=== PATIENT | male | born 1945 | race Caucasian/White ===

== ENCOUNTER → 2024-05-12 08:12 | Outpatient (REF) | payer MEDICARE, OTHER, SELFPAY | LOC: RCS 08:12 | PROVIDERS: ATTENDING PHYSICIAN Internal Medicine; REFERRING PHYSICIAN Internal Medicine Cardiovascular Disease | DX: R06.6 Hiccough (principal); R00.1 Bradycardia, unspecified; E23.0 Hypopituitarism; I10 Essential (primary) hypertension; K21.9 Gastro-esophageal reflux disease without esophagitis | CPT/HCPCS: 93306 ==

== ENCOUNTER → 2024-05-18 09:28 | Outpatient (REF) | payer MEDICARE, OTHER, SELFPAY | LOC: RCS 09:28 | PROVIDERS: ATTENDING PHYSICIAN Internal Medicine; REFERRING PHYSICIAN Internal Medicine Cardiovascular Disease | DX: R06.6 Hiccough (principal); R00.1 Bradycardia, unspecified; E23.0 Hypopituitarism; I10 Essential (primary) hypertension; K21.9 Gastro-esophageal reflux disease without esophagitis | CPT/HCPCS: 93225; 93226 ==

== ENCOUNTER → 2024-05-20 10:02 | Outpatient (REF) | payer MEDICARE, OTHER, SELFPAY ==
[2024-05-20 11:12] LABS: Hematocrit 45.6 % (39.0-52.0)
[2024-05-20 11:41] LABS: ALT (SGPT) 17 U/L (0-50); AST (SGOT) 26 U/L (17-59); Albumin 4.2 g/dl (3.5-5.0); Alkaline Phosphatase 71 U/L (38-126); Blood Urea Nitrogen 14 mg/dl (9-20); Calcium 9.2 mg/dl (8.4-10.2); Carbon Dioxide 23 mmol/L (22-30); Chloride 109 mmol/L (98-107); Glucose 87 mg/dl (70-99); Potassium 4.1 mmol/L (3.5-5.1); Sodium 140 mmol/L (135-145); Total Bilirubin 0.8 mg/dl (0.2-1.3); Total Protein 6.6 g/dl (6.3-8.2); eGFR > 60.00
[2024-05-20 11:57] LABS: Free T4 1.73 ng/dl (0.78-2.19)
[2024-05-20 12:11] LABS: PSA, Total - Diagnostic < 0.06 ng/ml (0.0-4.0)
== END ==
LOC: REG 10:02
PROVIDERS: ATTENDING PHYSICIAN Internal Medicine Endocrinology, Diabetes & Metabolism; FAMILY PHYSICIAN Internal Medicine
DX: N40.0 Benign prostatic hyperplasia without lower urinary tract symptoms (principal); E23.0 Hypopituitarism; D64.9 Anemia, unspecified
CPT/HCPCS: 36415; 80053; 84153; 84403; 84439; 85014

== ENCOUNTER → 2024-05-31 07:47 | Outpatient (REF) | payer MEDICARE, OTHER, SELFPAY | LOC: RAD 07:47 | PROVIDERS: ATTENDING PHYSICIAN Internal Medicine Cardiovascular Disease; FAMILY PHYSICIAN Internal Medicine | DX: R06.6 Hiccough (principal); R00.1 Bradycardia, unspecified; E23.0 Hypopituitarism; I10 Essential (primary) hypertension; K21.9 Gastro-esophageal reflux disease without esophagitis | CPT/HCPCS: 76700 ==

== ENCOUNTER → 2024-07-03 11:44 | Outpatient (REF) | payer MEDICARE, OTHER, SELFPAY | LOC: DHCBC/DCA 11:44 | PROVIDERS: ATTENDING PHYSICIAN Internal Medicine Cardiovascular Disease; FAMILY PHYSICIAN Internal Medicine | DX: R06.09 Other forms of dyspnea (principal) | CPT/HCPCS: 78452; 93017; A9500 ==

== ENCOUNTER → 2024-07-10 07:59 | Outpatient (REF) | payer MEDICARE, OTHER, SELFPAY | LOC: MRI 07:59 | PROVIDERS: ATTENDING PHYSICIAN Neurological Surgery; FAMILY PHYSICIAN Internal Medicine | DX: D35.2 Benign neoplasm of pituitary gland (principal) | CPT/HCPCS: 70553; A9575 ==

== ENCOUNTER → 2024-08-21 12:09 | Outpatient (REF) | payer MEDICARE, OTHER, SELFPAY ==
[2024-08-21 13:36] LABS: % Basophils 0.5 % (0-2); % Eosinophils 3.6 % (0-6); % Immature Granulocytes 0.2 % (0-0.5); % Lymphocytes 13.4 % (20.5-51.1); % Monocytes 6.2 % (1.7-9.3); % Neutrophils 76.1 % (42.2-75.2); Absolute Eosinophils 0.3 10^3/uL (0-0.7); Absolute Lymphocytes 1.1 10^3/uL (1.2-3.4); Absolute Monocytes 0.5 10^3/uL (0.1-0.6); Absolute Neutrophils 6.5 10^3/uL (1.4-6.5); Hematocrit 42.4 % (39.0-52.0); Hemoglobin 14.9 g/dL (13.0-18.0); Mean Corp Hgb Conc. 35.1 g/dL (33.0-37.0); Mean Corpuscular Hgb 29.6 pg (27.0-31.0); Mean Corpuscular Volume 84.1 fL (80.0-94.0); Mean Platelet Volume 8.7 fL (7.4-10.4); Nucleated Red Blood Cells % 0 % (-); Platelet Count 261 10^3/uL (130-400); Red Blood Cell Count 5.04 10^6/uL (4.70-6.10); Red Cell Dist. Width 13.6 % (11.5-14.5); White Blood Cell Count 8.5 10^3/uL (4.8-10.8)
== END ==
LOC: REG 12:09
PROVIDERS: ATTENDING PHYSICIAN Dermatology; FAMILY PHYSICIAN Internal Medicine
DX: L30.8 Other specified dermatitis (principal); Z79.899 Other long term (current) drug therapy
CPT/HCPCS: 36415; 85025

== ENCOUNTER → 2024-09-30 11:07 | Outpatient (REF) | payer MEDICARE, OTHER, SELFPAY ==
[2024-09-30 12:45] LABS: Urine Albumin Negative (Neg - Trace); Urine Bilirubin Negative (Negative); Urine Character Clear (Clear); Urine Color Yellow; Urine Glucose Negative (Negative); Urine Ketone Negative (Negative); Urine Leukocyte Negative (Negative); Urine Nitrite Negative (Negative); Urine Occult Blood Trace (Negative); Urine Urobilinogen Negative (Neg - 1+)
[2024-09-30 13:02] LABS: Urine White Cell None Seen /HPF (0-5)
[2024-09-30 13:03] LABS: ALT (SGPT) 21 U/L (0-50); AST (SGOT) 26 U/L (17-59); Albumin 4.2 g/dl (3.5-5.0); Alkaline Phosphatase 67 U/L (38-126); Blood Urea Nitrogen 18 mg/dl (9-20); Calcium 9.4 mg/dl (8.4-10.2); Carbon Dioxide 29 mmol/L (22-30); Chloride 106 mmol/L (98-107); Glucose 79 mg/dl (70-99); HDL Cholesterol 35 mg/dl; LDL Cholesterol, Calculated 83 mg/dl; Sodium 145 mmol/L (135-145); Total Bilirubin 0.9 mg/dl (0.2-1.3); Total Cholesterol 151 mg/dl (50-199); Total Protein 6.9 g/dl (6.3-8.2); Triglyceride 168 mg/dl (10-149); Very Low Density Lipoprotein 33 mg/dl (0-30); eGFR > 60.00
== END ==
LOC: REG 11:07
PROVIDERS: ATTENDING PHYSICIAN Internal Medicine
DX: I10 Essential (primary) hypertension (principal); E78.5 Hyperlipidemia, unspecified; E23.0 Hypopituitarism
CPT/HCPCS: 36415; 80053; 80061; 81003; 81015

== ENCOUNTER → 2024-11-23 10:19 | Outpatient (REF) | payer MEDICARE, OTHER, SELFPAY ==
[2024-11-23 10:59] LABS: Hematocrit 45.7 % (39.0-52.0)
[2024-11-23 12:19] LABS: ALT (SGPT) 19 U/L (0-50); AST (SGOT) 25 U/L (17-59); Albumin 4.3 g/dl (3.5-5.0); Alkaline Phosphatase 75 U/L (38-126); Blood Urea Nitrogen 18 mg/dl (9-20); Calcium 9.3 mg/dl (8.4-10.2); Carbon Dioxide 29 mmol/L (22-30); Chloride 105 mmol/L (98-107); Glucose 74 mg/dl (70-99); Potassium 4.2 mmol/L (3.5-5.1); Sodium 140 mmol/L (135-145); Total Bilirubin 0.9 mg/dl (0.2-1.3); Total Protein 6.7 g/dl (6.3-8.2); eGFR > 60.00
[2024-11-23 12:31] LABS: Free T4 1.62 ng/dl (0.78-2.19)
[2024-11-23 12:44] LABS: PSA, Total - Diagnostic < 0.06 ng/ml (0.0-4.0)
== END ==
LOC: REG 10:19
PROVIDERS: ATTENDING PHYSICIAN Internal Medicine Endocrinology, Diabetes & Metabolism; FAMILY PHYSICIAN Internal Medicine
DX: Z85.46 Personal history of malignant neoplasm of prostate (principal); E89.3 Postprocedural hypopituitarism
CPT/HCPCS: 36415; 80053; 84153; 84403; 84439; 85014

== ENCOUNTER → 2024-12-11 10:23 | Outpatient (REF) | payer MEDICARE, OTHER, SELFPAY | LOC: RAD 10:23 | PROVIDERS: ATTENDING PHYSICIAN Internal Medicine Gastroenterology; FAMILY PHYSICIAN Internal Medicine | DX: R06.6 Hiccough (principal) | CPT/HCPCS: 74246 ==

== ENCOUNTER → 2025-01-30 09:42 | Outpatient (REF) | payer MEDICARE, OTHER, SELFPAY | LOC: PAVMRI 09:42 | PROVIDERS: ATTENDING PHYSICIAN Neurological Surgery; FAMILY PHYSICIAN Internal Medicine | DX: D35.2 Benign neoplasm of pituitary gland (principal) | CPT/HCPCS: 70553; A9575 ==

== ENCOUNTER → 2025-07-12 13:59 | Outpatient (REF) | payer MEDICARE, OTHER, SELFPAY | LOC: REG 13:59 | PROVIDERS: ATTENDING PHYSICIAN Internal Medicine Endocrinology, Diabetes & Metabolism; FAMILY PHYSICIAN Internal Medicine | DX: E23.0 Hypopituitarism (principal); Z85.46 Personal history of malignant neoplasm of prostate | CPT/HCPCS: 36415; 84153; 84154; 84403 ==

== ENCOUNTER 2025-07-25 13:33 | Emergency (ER) | payer MEDICARE, OTHER, SELFPAY ==
[2025-07-25 13:34] VITALS: BP 131/92
--- NOTE | 2025-07-25 14:37 | ED.GENMED ---
History of Present Illness
General
Chief Complaint: Musculo-Skeletal Complaint
Source: patient
Exam Limitations: none
Time Seen by Provider: 07/25/25 14:06
Nursing documentation reviewed up to this point in time: agreed with
History of Present Illness
History of Present Illness:
Patient is an 6-year-old male who presents to the ER for evaluation of left calf pain. Patient reports 2 months ago he was treated for partial tear of his Achilles tendon and was followed by Dr. Santiago at [facility]. He was scheduled to go to
physical therapy but did not go to physical therapy as recommended.
On Wednesday 2 days ago he was walking the dog fell describes tripping and felt sudden intense left posterior calf pain. He has had pain since. Pain with walking. He denies any send he is on Eliquis. No headache no neck pain .
Past History
Past History
ED Past Medical History: HTN, Hypercholesterolemia and Other (Prostate cancer, hypopituitaryism)
ED Past Surgical History: Orthopedic and Other (Hernia repair, pituitary tumor resection x2)
Social History
Tobacco: Non-smoker
Alcohol: Daily (a glass of wine)
Personal:
Living: with family
Employment: Employed
Phy Exam
General Physical Exam
General Presentation: no apparent distress
General age: appears stated age
General Skin: warm and dry
General Habitus: normal
General Mental: alert
General Hydration: appears well hydrated
Neurological Exam
Neurological Exam: alert and oriented x3
Musculoskeletal Exam
Musculoskeletal Exam: other (Left lower extremity with fullness and swelling to posterior calf region tender to the distal posterior leg above the ankle decreased Achilles tendon function on exam; strong pulses)
Skin Exam
Skin Exam: normal color and warm/dry
Psychiatric Exam
Psychiatric Exam: normal mood/affect
Course
Orders/Labs/Results
Orders:
Orders
07/25/25 14:36
Ankle, left 3 view CR [CR Ankle - Left Min 3 Views ] Urgent
Comment:
Reason For Exam: trauma
Tib/Fib, Left 2 View [CR Leg Tibia/fibula Left 2 Vw] Urgent
Comment:
Reason For Exam: trauma
Venous Doppler Lwr Ext Left [US Periph Venous LOWER Ext LT] Urgent
Comment:
Reason For Exam: sudden calf pain after fall
Vital Signs
Initial and Last Documented VS:
Initial Vital Signs
Temp Pulse Resp BP Pulse Ox
98.2 F 74 18 131/92 96
07/25/25 13:34 07/25/25 13:34 07/25/25 13:34 07/25/25 13:34 07/25/25 13:34
Last Documented Vital Signs
Temp Pulse Resp BP Pulse Ox
98.2 F 74 18 131/92 96
07/25/25 13:34 07/25/25 13:34 07/25/25 13:34 07/25/25 13:34 07/25/25 14:40
MDM/Problems Addressed
MDM/Problems Addressed:
Patient with recent partial Achilles tendon injury was treated at [facility] and wore a boot as his treatment. He was recommended to go to physical therapy but did not. He comes in today complaining of pain and swelling to left calf. as
documented he tripped and felt sudden pain in his left calf. He presents with swelling of the calf. He is on Eliquis. He denies hitting his head. No headache nausea vomiting neck pain. Patient has point tenderness to the posterior calf and calf
is swollen ultrasound negative for DVT ultrasound does show heterogeneous mass compatible with hematoma and diffuse fusiform thickening of the Achilles tendon compatible with diffuse tenderness. His Achilles tendon is not fully intact however I am
not sure if this is from previous injury since he did not properly do physical therapy.
Will obtain x-rays of x-rays negative plan to discharge home with the boot. Patient has a boot in place. I did speak with orthopedic [facility] on-call Dr. Greene who does agree with the boot. He has an appoint with his orthopedic doctor
Jack at [facility] tomorrow.
Discussed to keep elevate and ice is much as possible and wear boot as needed for ambulation.
Possible Achilles tendon injury versus muscle sprain/injury.
Chronic conditions affecting care:
On Eliquis now with possible hematoma in the calf from injury
*Radiology
Radiology exam reviewed: preliminary read by ED provider
*Pulse Oximetry
SaO2: 96
Oxygen Mode of Delivery: Room air
Patient hypoxic: no
*Critical Care Note
Total Time (30-74mins, 75-104mins- exclusive of procedures): Not Applicable
Patient Management
Discussion with other providers: Clinical Informatics Spec
Escalation/DeEscalation of care consider admission/obs:
ortho dR Greene
ED Attending Note
-
Portions of this chart may have been created with voice recognition software.� Occasional wrong word or��sound alike� substitutions may have occurred due to the inherent limitations of voice recognition software.
Discharge Plan
Departure
Patient Disposition: Home (Routine Discharge)
Date of Disposition: 07/25/25
Time of Disposition: 18:29
Patient with high blood pressure during this ER visit?: Yes
Condition: Fair
Covid-19: Not Applicable
Discharge Problem:
Calf pain
Instructions: BLOOD PRESSURE
Prescriptions:
No Action
simvastatin 40 MG tablet
40 mg PO HS
levothyroxine 125 MCG tablet
125 mcg PO .MOTETHFRSU
aspirin 81 MG tablet,chewable
81 mg PO DAILY
hydrocortisone 10 MG tablet
10 mg PO QPM
hydrocortisone 20 MG tablet
20 mg PO DAILY
Androgel Pump 1.62 %
3 sprays topical DAILY
levothyroxine 125 MCG tablet
250 mcg PO .WESA
benazepril [Lotensin] 20 MG tablet
20 mg PO HS
zyapiekj-jqn-RH-lycopen-lutein [Centrum Silver] 1 EACH tablet
1 ea PO DAILY
Referrals:
Anselmo Tucker MD [Family Provider, Internal Medicine]
Wei Santiago DPM [Non-Admitting Privileges, Podiatry]
Activity Restrictions/Additional Instructions:
As discussed keep elevated as much as possible and ice the affected area for the next 24 hours 20 minutes at a time several times a day. Wear your boot at home for any ambulation. Follow-up with orthopedics tomorrow as scheduled. It is possible
that this is a new Achilles tendon injury versus muscle injury which caused a hematoma since you are on Eliquis. Tylenol as needed for pain
Interventions
Interventions:
*Risk Screen - Suicide Last Done: 07/25/25 13:34
*General Assessment Last Done: 07/25/25 13:38
*Neglect/Abuse Screening Last Done: 07/25/25 13:34
*ED- Fall Risk Assessment Last Done: 07/25/25 13:38
*ED COVID-19 Vaccine History Last Done: 07/25/25 13:38
*ED Influenza Vaccine History Last Done: 07/25/25 13:38
ED-Musculoskeletal Assessment Last Done: 07/25/25 15:15
Discharge Date and Time
Print Language: SOMALI
[2025-07-25 16:00] VITALS: BP 141/88
== END 2025-07-25 18:36 | disposition home or self-care (01) ==
LOC: EMR 13:33
PROVIDERS: EMERGENCY PHYSICIAN Emergency Medicine; FAMILY PHYSICIAN Internal Medicine
DX: M79.662 Pain in left lower leg (principal); R22.42 Localized swelling, mass and lump, left lower limb; I10 Essential (primary) hypertension; E78.00 Pure hypercholesterolemia, unspecified; Z79.01 Long term (current) use of anticoagulants
CPT/HCPCS: 99284; 73590; 73610; 93971

== ENCOUNTER → 2025-07-30 15:34 | Outpatient (REF) | payer MEDICARE, OTHER, SELFPAY | LOC: RAD 15:34 | PROVIDERS: ATTENDING PHYSICIAN Physician Assistant Medical | DX: M79.89 Other specified soft tissue disorders (principal); R22.42 Localized swelling, mass and lump, left lower limb | CPT/HCPCS: 93971 ==

== ENCOUNTER → 2025-07-31 20:27 | Outpatient (REF) | payer MEDICARE, OTHER, SELFPAY | LOC: PAVMRI 20:27 | PROVIDERS: ATTENDING PHYSICIAN Podiatrist Foot & Ankle Surgery; FAMILY PHYSICIAN Internal Medicine | DX: M76.62 Achilles tendinitis, left leg (principal); S86.812A Strain of other muscle(s) and tendon(s) at lower leg level, left leg, initial encounter | CPT/HCPCS: 73718 ==

== ENCOUNTER 2025-10-06 10:04 | Emergency (ER) | payer MEDICARE, OTHER, SELFPAY ==
[2025-10-06] VITALS (8 sets, daily range): BP systolic 96–120; BP diastolic 64–85; BMI 32.6
--- NOTE | 2025-10-06 11:03 | EDRN ---
Dr. Evans in room w/ pt.
--- NOTE | 2025-10-06 11:14 | ED.GENMED ---
History of Present Illness
General
Chief Complaint: Heart Rate Problem
Time Seen by Provider: 10/06/25 10:50
History of Present Illness
History of Present Illness:
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 Patient states that this morning he woke up and
he felt like his heart rate was all over the place. He did not feeling palpitations lightheadedness or dizziness. He did feel some tightness in his neck and some shortness of breath. That has since resolved. He does note that last night he had
diarrhea. He did drink water this morning. No true chest pain. No leg swelling hemoptysis long car rides or plane rides or history of blood clots. He has been compliant all his medications. He does state that if last year there was a possible
heart rate problem that he was seen by cardiology. They did put him on Eliquis preemptively. He is not on any heart rate controlling medications. No recent illnesses. He does drink 1 beer a day.
Past History
Past History
ED Past Medical History: HTN, Hypercholesterolemia and Other (Prostate cancer, hypopituitaryism)
ED Past Surgical History: Orthopedic and Other (Hernia repair, pituitary tumor resection x2)
Social History
Tobacco: Non-smoker
Alcohol: Daily (a glass of wine)
Personal:
Living: with family
Employment: Employed
Phy Exam
Physical Exam
Physical Exam:
GENERAL: in no acute distress
HEENT: normocephalic, extraocular movements intact, dry oral mucosa
NECK: normal inspection
RESPIRATORY: no respiratory distress, clear to auscultation bilaterally
CARDIOVASCULAR: Irregularly irregular, heart rate in the 60s
ABDOMEN/: soft, non-distended, non-tender to palpation, no rebound or guarding
EXTREMITIES: non-tender, no edema/swelling
NEUROLOGIC: awake and alert, moves all extremities
SKIN: warm
Course
Orders/Labs/Results
Orders:
Orders
10/06/25 10:14
EKG [Electrocardiogram (*1)] Urgent
Reason for Study: Palpitations
EKG- Treatment ONCE
10/06/25 10:47
Cardiac Monitoring- Treatment ONCE
IV Insert/Care/Rem.- Treatment PRN
10/06/25 10:51
CR Chest - 2 Views Urgent
Comment:
Reason For Exam: chest pain
10/06/25 11:10
EKG- Treatment ONCE
10/06/25 11:23
Complete Blood Count/With Diff Urgent
Comprehensive Metabolic Panel Urgent
Free T4 Urgent
Magnesium Urgent
Thyroid profile [TSH Reflex To Free T4] Urgent
Troponin I Urgent
10/06/25 13:57
Troponin I Urgent
10/06/25 14:00
Electrocardiogram (*1) Urgent
Reason for Study: Chest Pain
Abnormal Lab Results
10/06/25
11:23
Absolute Neuts (auto) 8.7 H 10^3/uL
(1.4-6.5)
Absolute Lymphs (auto) 0.8 L 10^3/uL
(1.2-3.4)
Absolute Monos (auto) 0.9 H 10^3/uL
(0.1-0.6)
Neutrophils % 82.7 H %
(42.2-75.2)
Lymphocytes % 7.1 L %
(20.5-51.1)
TSH (Reflex) < 0.02 L uIU/ml
(0.47-4.68)
10/06/25 11:23
10/06/25 11:23
Vital Signs
Initial and Last Documented VS:
Initial Vital Signs
Temp Pulse Resp BP Pulse Ox
98.6 F 74 16 115/68 97
10/06/25 10:11 10/06/25 10:11 10/06/25 10:11 10/06/25 10:11 10/06/25 10:11
Last Documented Vital Signs
Temp Pulse Resp BP Pulse Ox
98.6 F 100 22 120/84 96
10/06/25 10:11 10/06/25 15:15 10/06/25 15:15 10/06/25 15:13 10/06/25 15:15
MDM/Problems Addressed
Differential Diagnosis Includes:
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 On arrival patient heart rate in the
70s. Exam does show dry oral mucosa. EKG per my interpretation consistent with atrial fibrillation. This is a new diagnosis for patient. However he is on Eliquis preemptively as there was concern that he could be an atrial arrhythmia last year.
He does appear dehydrated which certainly could have been the trigger. Unclear when patient went into atrial fibrillation. He is rate controlled. Could be also related to metabolic derangement. Given the tightness and the shortness of breath
will rule out atypical ACS. Will check blood work including magnesium troponin and thyroid function. Will obtain chest x-ray. I did discuss cardioversion though patient is asymptomatic at this time so we will hold off.
*Pulse Oximetry
SaO2: 97
Oxygen Mode of Delivery: Room air
Patient hypoxic: no
*Critical Care Note
Total Time (30-74mins, 75-104mins- exclusive of procedures): Not Applicable
Update Note
Update Note:
Blood work reassuring. EKG per my interpretation consistent with atrial fibrillation. Chest x-ray negative for any acute abnormalities. On reevaluation patient remains in rate controlled A-fib though asymptomatic. Delta troponin negative.
Patients concerned about discharge given the snow and if things were to worsen how she would bring him back. She does state that he is spacey. Patient denies any complaints and states that he feels normal. He was ambulatory without any
problems. After lengthy discussion I did offer diltiazem and admission versus cardioversion and admission. However patient's is hesitant on cardioversion as well as diltiazem. After shared decision making we will reach out to cardiology for
their input and if they are in agreement with discharge and rate controlled A-fib.
I did reach out to Dr. ball from cardiology who is in agreement with discharge if he is in rate controlled A-fib. I did review telemetry. Patient has remained in rate controlled A-fib. He remains asymptomatic. Strict return precautions given
ED Attending Note
-
Portions of this chart may have been created with voice recognition software.� Occasional wrong word or��sound alike� substitutions may have occurred due to the inherent limitations of voice recognition software.
Discharge Plan
Departure
Patient Disposition: Home (Routine Discharge)
Date of Disposition: 10/06/25
Time of Disposition: 15:59
Patient with high blood pressure during this ER visit?: No
Discharge Problem:
Atrial fibrillation
Instructions: Atrial Fibrillation (DC)
Prescriptions:
No Action
simvastatin 40 MG tablet
40 mg PO HS
levothyroxine 125 MCG tablet
125 mcg PO .MOTETHFRSU
aspirin 81 MG tablet,chewable
81 mg PO DAILY
hydrocortisone 10 MG tablet
10 mg PO QPM
hydrocortisone 20 MG tablet
20 mg PO DAILY
Androgel Pump 1.62 %
3 sprays topical DAILY
levothyroxine 125 MCG tablet
250 mcg PO .WESA
benazepril [Lotensin] 20 MG tablet
20 mg PO HS
pbxyumnv-fdc-DN-lycopen-lutein [Centrum Silver] 1 EACH tablet
1 ea PO DAILY
Referrals:
Anselmo Tucker MD [Family Provider, Internal Medicine]
Activity Restrictions/Additional Instructions:
Thank You for choosing [facility].
It was a pleasure meeting you and taking part in your care.
You were seen in the Emergency Department today for atrial fibrillation. While you were here we performed blood work, which was reassuring. Please continue to take the Eliquis. Please follow-up with cardiology.
We would like for you to follow up with your primary care physician for further evaluation. If you experience fever, worsening of your symptoms, or develop any other new or concerning symptoms, please return to the Emergency Department immediately.
Please see the attached sheet for additional information.
Interventions
Interventions:
*Risk Screen - Suicide Last Done: 10/06/25 10:11
*General Assessment Last Done: 10/06/25 11:14
*Neglect/Abuse Screening Last Done: 10/06/25 10:11
*ED COVID-19 Vaccine History Last Done: 10/06/25 11:14
*ED Influenza Vaccine History Last Done: 10/06/25 11:14
[facility] Fall Risk Assessment Tool Last Done: 10/06/25 11:14
ED- Cardiac Assessment Last Done: 10/06/25 11:30
ED- Pulmonary Assessment Last Done: 10/06/25 11:30
Discharge Date and Time
Print Language: SLOVAK
[2025-10-06 11:30] LABS: Hematocrit 41.1 % (39.0-52.0); Hemoglobin 14.2 g/dL (13.0-18.0); Mean Corp Hgb Conc. 34.5 g/dL (33.0-37.0); Mean Corpuscular Volume 85.8 fL (80.0-94.0); Nucleated Red Blood Cells % 0 % (-); Platelet Count 240 10^3/uL (130-400); Red Cell Dist. Width 13.1 % (11.5-14.5)
--- NOTE | 2025-10-06 11:40 | EDRN ---
Pt administered water after checking w/ Dr. Evans who said pt can drink water.
--- NOTE | 2025-10-06 11:41 | EDRN ---
OOB to BR at this time.
[2025-10-06 11:46] LABS: ALT (SGPT) 17 U/L (0-50); AST (SGOT) 24 U/L (17-59); Albumin 3.9 g/dl (3.5-5.0); Alkaline Phosphatase 69 U/L (38-126); Blood Urea Nitrogen 14 mg/dl (9-20); Calcium 9.1 mg/dl (8.4-10.2); Carbon Dioxide 25 mmol/L (22-30); Chloride 107 mmol/L (98-107); Estimated Creatinine Clearance 62 ml/min; Glucose 84 mg/dl (70-99); Magnesium 2.3 mg/dl (1.6-2.3); Potassium 4.2 mmol/L (3.5-5.1); Sodium 139 mmol/L (135-145); Total Protein 6.6 g/dl (6.3-8.2); eGFR > 60.00
[2025-10-06 11:56] LABS: Troponin I < 0.012 ng/ml
--- NOTE | 2025-10-06 14:00 | EDRN ---
Repeat tropinin drawn and sent at this time.
[2025-10-06 14:27] LABS: Troponin I < 0.012 ng/ml
--- NOTE | 2025-10-06 14:45 | EDRN ---
Dr. Evans in room w/pt at this time.
--- NOTE | 2025-10-06 15:05 | EDRN ---
Pt ambulated in HW w/ this RN remaining asymptomatic. Spouse is very concerned about pt being discharged w/ A Fib.
--- NOTE | 2025-10-06 15:17 | EDRN ---
Spouse voiced concern about pt going home in A Fib. Dr. Olguin in room now speaking w/ pt and spouse for a decision admission versus discharge as pt is in a stable A Fib at this time.
== END 2025-10-06 16:55 | disposition home or self-care (01) ==
LOC: EMR 10:04
PROVIDERS: EMERGENCY PHYSICIAN Student in an Organized Health Care Education/Training Program; FAMILY PHYSICIAN Internal Medicine
DX: I48.91 Unspecified atrial fibrillation (principal); E78.00 Pure hypercholesterolemia, unspecified; I10 Essential (primary) hypertension; E23.0 Hypopituitarism; Z79.899 Other long term (current) drug therapy; Z79.01 Long term (current) use of anticoagulants; Z85.46 Personal history of malignant neoplasm of prostate
CPT/HCPCS: 99285; 71046; 80053; 83735; 84439; 84443; 84484; 85025; 93005

== ENCOUNTER → 2025-10-08 11:43 | Outpatient (REF) | payer MEDICARE, OTHER, SELFPAY ==
[2025-10-08 12:43] LABS: HDL Cholesterol 40 mg/dl; LDL Cholesterol, Calculated 81 mg/dl; Very Low Density Lipoprotein 20 mg/dl (0-30)
[2025-10-08 14:09] LABS: Urine Character Clear (Clear)
[2025-10-08 14:58] LABS: Urine Squamous Cell None seen /LPF (Few); Urine White Cell 0-2 /HPF (0-5)
== END ==
LOC: REG 11:43
PROVIDERS: ATTENDING PHYSICIAN Internal Medicine
DX: E78.2 Mixed hyperlipidemia (principal); I10 Essential (primary) hypertension; E23.0 Hypopituitarism; E27.49 Other adrenocortical insufficiency
CPT/HCPCS: 36415; 80061; 81003; 81015